=== PATIENT | female | born 1975 | race Hispanic/Latino ===

== ENCOUNTER → 2020-12-08 | Outpatient (CLI) | payer OTHER | END | disposition home or self-care (01) | LOC: OIH 08:56 | PROVIDERS: ATTEND Internal Medicine | DX: S92.352A Displaced fracture of fifth metatarsal bone, left foot, initial encounter for closed fracture (principal); M19.071 Primary osteoarthritis, right ankle and foot; M77.31 Calcaneal spur, right foot; M77.32 Calcaneal spur, left foot; M19.072 Primary osteoarthritis, left ankle and foot; M19.041 Primary osteoarthritis, right hand; M19.042 Primary osteoarthritis, left hand; M85.89 Other specified disorders of bone density and structure, multiple sites; X58.XXXA Exposure to other specified factors, initial encounter; Y93.89 Activity, other specified; Y92.89 Other specified places as the place of occurrence of the external cause; Y99.8 Other external cause status | CPT/HCPCS: 73521; 73630 ==

== ENCOUNTER 2021-05-24 21:53 | Emergency (ER) | payer OTHER ==
[~2021-05-24] VITALS: Ht 160 cm; Wt 85.3 kg
[2021-05-24 22:22] VITALS: BP 116/69
[2021-05-24] MEDS ORDERED: CEPH500B PO (23:05)
[2021-05-24] MEDS ORDERED: HYDROCODONE/ACETAMINOPHEN 5/325 MG TAB PO STA (23:06)
[2021-05-24] MEDS ORDERED: CEPHALEXIN 500 MG CAPSULE PO STA (23:06)
[2021-05-24 23:28] VITALS: BP 119/71
[2021-05-24] MEDS ORDERED: TETANUS/DIPHTHERIA TOXOID [ADULT] 0.5 ML VIAL IM ONE (23:30)
== END 2021-05-24 23:45 | disposition home or self-care (01) ==
LOC: EDH 21:53
DX: S81.812A Laceration without foreign body, left lower leg, initial encounter (principal); I10 Essential (primary) hypertension; I73.9 Peripheral vascular disease, unspecified; W18.39XA Other fall on same level, initial encounter; Y93.89 Activity, other specified; Y92.89 Other specified places as the place of occurrence of the external cause; Y99.8 Other external cause status
CPT/HCPCS: 12004; 90471; 90714

== ENCOUNTER → 2022-04-25 | Outpatient (CLI) | payer OTHER ==
[~2022-04-25] MED LIST: CEPH500B PO
== END | disposition home or self-care (01) ==
LOC: SHCH 07:39
PROVIDERS: ATTEND Internal Medicine Cardiovascular Disease
DX: I87.2 Venous insufficiency (chronic) (peripheral) (principal)
CPT/HCPCS: 93971

== ENCOUNTER → 2022-10-19 | Outpatient (CLI) | payer OTHER | END | disposition home or self-care (01) | LOC: RAH 08:51 | PROVIDERS: ATTEND Family Medicine | DX: K21.00 Gastro-esophageal reflux disease with esophagitis, without bleeding (principal) | CPT/HCPCS: 74240 ==

== ENCOUNTER 2023-01-23 13:28 | Emergency (ER) | payer OTHER ==
[~2023-01-23] VITALS: Ht 157.5 cm; Wt 88.9 kg
[2023-01-23 14:16] LABS: BASOPHILS % (AUTO) 0.3 % (0.0-5.0); EOSINOPHILS % (AUTO) 0.2 % (0.0-8.0); HEMATOCRIT 30.8 % (36-48); MEAN CORPUSCULAR HEMOGLOBIN 18.6 pg (27.0-33.0); MEAN CORPUSCULAR HGB CONC 27.6 g/dL (32.0-36.0); MEAN CORPUSCULAR VOLUME 67.5 fL (79-99); MONOCYTES % (AUTO) 7.8 % (3.0-13.0); PLATELET COUNT (AUTO) 497 K/uL (130-400); RED BLOOD CELL COUNT(AUTO) 4.56 MIL/uL (4.00-5.50); RED CELL DISTRIBUTION WIDTH 23.3 % (11.0-15.5); WHITE BLOOD COUNT (AUTO) 12.1 K/uL (4.8-10.8)
[2023-01-23 14:33] LABS: CREATININE 0.9 mg/dL (0.5-1.5); POTASSIUM 3.6 mmol/L (3.5-5.1)
[2023-01-23 14:38] LABS: ALBUMIN 3.5 g/dL (3.5-5.0); TOTAL PROTEIN, SERUM 7.9 g/dL (6.0-8.3)
[2023-01-23 15:41] LABS: APPEARANCE,URINE CLEAR (CLEAR); BILIRUBIN,URINE NEGATIVE (NEGATIVE); COLOR,URINE YELLOW (YELLOW); GLUCOSE, URINE (UA) NEGATIVE (NEGATIVE); KETONES,URINE 5 mg/dL (NEGATIVE); LEUKOCYTE ESTERASE ,URINE NEGATIVE Leu/uL (NEGATIVE); NITRATE,URINE NEGATIVE (NEGATIVE); OCCULT BLOOD,URINE SMALL (NEGATIVE); PROTEIN,URINE 50 mg/dL (NEGATIVE)
[2023-01-23 15:46] LABS: HCG,QUALITATIVE URINE NEGATIVE (NEGATIVE)
[2023-01-23 15:49] LABS: BACTERIA,URINE RARE /HPF (None Seen); CALCIUM OXALATE CRYSTALS,UR RARE /LPF (None Seen); MUCUS,URINE MOD LPF (None Seen); SQUAMOUS EPITHELIAL CELL,UR MOD /HPF (0-2); WBC,URINE 0-1 /HPF (0-1)
[2023-01-23 17:03] VITALS: BP 135/84
== END 2023-01-23 17:23 | disposition home or self-care (01) ==
LOC: EDH 13:28
DX: R10.9 Unspecified abdominal pain (principal); I10 Essential (primary) hypertension; E11.9 Type 2 diabetes mellitus without complications; Z90.89 Acquired absence of other organs
CPT/HCPCS: 36415; 80053; 81001; 81025; 83690; 85025

== ENCOUNTER 2024-08-01 11:36 | Emergency (ER) | payer BC ==
[~2024-08-01] VITALS: Ht 172.7 cm; Wt 93.0 kg
[~2024-08-01 11:36] MED LIST changes: +TAMS-1 PO
[2024-08-01 11:44] VITALS: TEMP 98.3
--- NOTE | 2024-08-01 13:51 | HMCIMG ---
FOOT COMP 3+VWS LT HISTORY: Injury COMPARISON: None TECHNIQUE: 3 images of left foot were obtained. FINDINGS: There is calcaneal spur. There is fracture displacement involving the base of the fifth metatarsal bone. No dislocation is seen. Periosteal reaction is seen of the distal portion of the fourth metatarsal bone suggestive of healing fracture. Degenerative changes are seen. IMPRESSION: 1. Findings as described above.
--- NOTE | 2024-08-01 13:56 | HMCIMG ---
KNEE 3VWS LT HISTORY: Injury COMPARISON: None TECHNIQUE: 3 images of left knee were obtained. FINDINGS: There is no acute displaced fracture or dislocation. There is soft tissue swelling. Degenerative changes are seen. IMPRESSION: 1. Findings as described above.
[2024-08-01] MEDS: DIPH,PERTUSS(ACELL),TET VAC/PF 0.5 ML VIAL IM ONE (14:06)
[2024-08-01] MEDS: LIDOCAINE HCL 1% 20 ML VIAL INJ STA (14:07)
[2024-08-01] MEDS ORDERED: CEPH500B PO (14:49)
--- NOTE | 2024-08-01 14:49 | ERN ---
ED Note History of Present Illness Stated Complaint: FALL, LEFT KNEE LACERATION Chief Complaint: Mechanical Fall Time Seen by MD: 11:37 Dictation: 48-year-old female mechanical fall onto left knee and left great toe laceration, bleeding controlled on scene, patient denies any chest pain or head injury, no syncope. Patient reports a 5/10 pain worse with touch and movement. Allergies: Coded Allergies: No Known Drug Allergies (Verified Allergy, 01/10/13) Home Meds Active Scripts Tamsulosin HCl (Flomax) 0.4 Mg Cap.er.24h, 0.4 MG PO DAILY for 30 Days, #30 CAPSULE.DR Prov:ABDIEL BLACK ENGINEER SERGEANT 09/14/23 Cephalexin Monohydrate (Keflex) 500 Mg Cap, 500 MG PO BID for 7 Days, #14 CAP Prov:SOFIAABDIEL G ENGINEER SERGEANT 09/14/23 Past Medical History Past Medical History: Diabetes-Type II, Hypertension Additional Past Medical Hx: ARTITIS; CIRCULATION PROBLEMS Surgical History: Appendectomy, Other Surgical History Other: TUBAL LIGATION Review of System Dictation Constitutional: Negative for fever,chills, and weight loss Eyes: Negative for injury, pain,redness, and discharge ENT: Negative for injury,pain or swelling Cardiovascular: Negative for chest pain, palpitations, and edema Respiratory: Negative for shortness of breath, cough, and wheezing, Abdomen/GI: Negative for abdominal pain, nausea, vomiting, diarrhea, and constipation Back: Negative for injury and pain : Negative for injury, bleeding and discharge MS/per HPI Skin: Per HPI Neuro: Negative for headache, weakness, numbness, tingling, and seizure Psych: Negative for suicide ideation, homicidal ideation, and hallucinations Initial Vital Sign VS Vital Signs Date Time Temp Pulse Resp B/P (MAP) Pulse Ox O2 Delivery O2 Flow Rate FiO2 08/01/24 11:44 98.2 80 16 153/87 98 Room Air 0 08/01/24 11:44 21 Physical Exam Dictation General: awake, alert, NAD Head/Face: Normocephalic, atraumatic Eyes: PERRL, EOMI, vision at baseline ENT: oral cavity clear, TMs clear, no signs of infection Neck: Trachea midline, supple, no nuchal rigidity Cardiovascular: RRR, normal S1/S2, No MRGs, no JVD Respiratory: CTAB, no respiratory distress, No rales or wheezes Abdomen: Soft, non-tender, non-distended, normal bowel sounds, no guarding or rebound. Skin: 10 cm laceration to the anterior surface of left knee, into subcu tissue, small laceration to left great toe, MS/Extremity: Pulses equal, no cyanosis, neurovascular intact, FROM, left knee exam extension and flexion preserved at the patellar tendon. Neuro: COAx4, GCS 15, strength 5/5, CN 2-12 intact, normal cerebellar exam, norm al gait, Psych: Normal behavior, mood, and affect normal Results (Laboratory/Radiology) X-RAY Comment: Plain x-rays of the knee and foot reviewed and interpreted by me independently, no fractures or dislocations noted. ED Course ED Course Orders Procedure Category Date Status Time Knee 3vws Lt RAD 08/01/24 Resulted 12:08 Foot Comp 3+Vws Lt RAD 08/01/24 Resulted 12:08 Diph,Pertuss(Acell),Tet PHA 08/01/24 Complete Vac/Pf (Tdap) 12:30 Lidocaine Hcl 1% 20ml PHA 08/01/24 Complete Vial (Lidocaine Hc 12:08 Current Medications Medications (Trade) Dose Ordered Sig/Jaciel Route PRN Reason Start Time Stop Time Status Last Admin Dose Admin Diphtheria/ Tetanus/Acell Pertussis (Tdap) 0.5 ml ONCE ONCE IM 08/01/24 12:30 08/01/24 12:31 DC 08/01/24 14:06 Lidocaine HCl (Lidocaine HCl 1% 20ml Vial) 20 ml ONCE STAT INJ 08/01/24 12:08 08/01/24 12:10 DC 08/01/24 14:07 Vital Signs Date Time Temp Pulse Resp B/P (MAP) Pulse Ox O2 Delivery O2 Flow Rate FiO2 08/01/24 11:44 98.4 82 16 153/87 99 Room Air* 0 21 08/01/24 11:44 98.2 80 16 153/87 98 Room Air 0 Medical Decision Making MDM MDM: Differential diagnosis: Rationale: Tests considered and ordered secondary to shared decision making include: Previous outside records reviewed: Old ER visits. Risk of complication and/or morbidity or mortality of patient management: None Medications-Per medication reconciliation Need for hospitalization: Patient does not meet criteria for hospitalization. Need for emergency major/minor surgery: No There are no social concerns with this patient. Prescription drug management Prescriptions will include symptomatic care Patient's prior external medical records from other ER visits were reviewed by me as indicated. Prior testing and results from previous visits were reviewed. Prior tests were taken into account with medical decision making and resource utilization, independent historian/historians were used to obtain complete medical history. I independently interpreted the test that were performed, results were reviewed by me and considered findings on radiology if ordered. Medical management and examination interpretation discussions were had by me with other qualified healthcare professionals as indicated for the patient's care. Procedure Procedure Dictation: Laceration repair note, site left knee, size 10 cm irregular flap, into the sub cutaneous space, no foreign body object noted, local anesthetics 10 mL of 1% lidocaine was locally infused wound was washed out with copious amounts of normal saline, 12 stitches of 3-0 Prolene normal absorbable were placed 10 running, two simple interrupted, patient tolerated procedure well complex laceration repair. DX & DISP Disposition: Discharge Departure Impression: Primary Impression: Fall Condition: Stable Scripts Cephalexin Monohydrate (Keflex) 500 Mg Cap 500 MG PO BIDAC for 7 Days, #14 CAP Prov: DANIAL AKBAR MD 08/01/24 Referrals: JACQUES CHEEK DO (PCP) DANIAL AKBAR MD Aug 01, 2024 14:49
[2024-08-01 15:00] VITALS: BP 148/81; PULSE 81; RESP 18; O2SAT 99
--- NOTE | 2024-08-01 15:00 | NUR ---
WOUNDCARE PROVIDED TO LEFT KNEE AND LEFT GREAT TOE WITH WOUND CLEANSER. LACERATION REPAIR DONE BY DR AKBAR WITH SUTURES TO LEFT KNEE, TOLERATED WELL. NO ACTIVE BLEEDING AT THIS TIME. LACERATION REPAIR DONE TO LEFT GREAT TOE USING STERI STRIPS. TOLERATED WELL. NO ACTIVE BLEEDING
== END 2024-08-01 15:22 | disposition home or self-care (01) ==
LOC: EDH 11:36
DX: S81.012A Laceration without foreign body, left knee, initial encounter (principal); S91.112A Laceration without foreign body of left great toe without damage to nail, initial encounter; E11.9 Type 2 diabetes mellitus without complications; I10 Essential (primary) hypertension; Z90.49 Acquired absence of other specified parts of digestive tract; Z98.51 Tubal ligation status; Z98.890 Other specified postprocedural states; W18.39XA Other fall on same level, initial encounter; Y93.89 Activity, other specified; Y92.89 Other specified places as the place of occurrence of the external cause; Y99.8 Other external cause status
CPT/HCPCS: 12004; 73562; 73630; 90471; 90715; 99284